=== PATIENT | male | born 1995 | race African-American/Black ===

== ENCOUNTER 2019-07-09 12:40 | Emergency (ER) | payer BC ==
[~2019-07-09] VITALS: Ht 177.8 cm; Wt 80.0 kg
[2019-07-09 14:40] VITALS: BP 105/77
== END 2019-07-09 14:45 | disposition home or self-care (01) ==
LOC: ER 12:54
DX: R06.02 Shortness of breath (principal); F41.9 Anxiety disorder, unspecified
CPT/HCPCS: 71045; 93005; 99283

== ENCOUNTER 2019-07-15 13:25 | Emergency (ER) | payer BC ==
[~2019-07-15] VITALS: Ht 177.8 cm; Wt 84.0 kg
[2019-07-15] MEDS ORDERED: IBUPROFEN 600MG TABLET PO STA (13:51)
[2019-07-15] MEDS ORDERED: SODIUM CHLORIDE 0.9% 1,000 ML IV ONE (13:51)
[2019-07-15 14:05] LABS: BASOPHILS % 0.4 % (0.0-2.0); HEMATOCRIT. 44.4 % (42.0-52.0); HEMOGLOBIN. 15.6 g/dL (14.0-18.0); LYMPHOCYTES % 39.4 % (20.0-50.0); MEAN CORPUSCULAR VOLUME 88.3 fL (80.0-94.0); MEAN PLATELET VOLUME 9.1 fl (7.4-10.4); NEUTROPHILS % 48.2 % (40.0-76.0); PLATELET 294 x1000/uL (130-400); RED BLOOD CELL COUNT 5.03 mill/uL (4.7-6.1); RED CELL DISTRIBUTION WIDTH 13.8 % (11.6-14.6)
[2019-07-15 14:14] LABS: CHLORIDE 106 mEq/L (98-107)
[2019-07-15 15:07] VITALS: BP 131/69
== END 2019-07-15 15:11 | disposition home or self-care (01) ==
LOC: ER 13:25
DX: R07.89 Other chest pain (principal)
CPT/HCPCS: 36415; 71045; 80053; 85025; 93005; 99285; J7030